=== PATIENT | female | born 1955 | race Caucasian/White ===

== ENCOUNTER 2020-05-31 18:33 | Inpatient (IN) | payer OTHER ==
[~2020-05-31] VITALS: Ht 167.6 cm; Wt 97.5 kg
--- NOTE | ~2020-05-31 | CON ---
[facility] [address] [place] [address] CONSULTATION Name: SAMIPRITESH K Room: [address] IN M.R.#: [id number] Admission: 05/31/20 Attend Phys: Chris Dumont Discharge: Date of : 55 Report #: [id number] THIS REPORT FOR: //name// cc: Jose Da Silva MD, Bruce D. MD ~ THIS REPORT FOR: //name// CC: Jose Mccracken DATE OF SERVICE: 06/01/2020 REASON FOR CONSULTATION: Melanotic stool and severe anemia. HISTORY OF PRESENT ILLNESS: This is a 64-year-old paraplegic female who has been paraplegic all her life. The patient presented with shortness of air, weakness and syncope. During her ER visit, she was found to have hemoglobin of 4.2 and has had reported that she has had on and off dark stools for the past 6-7 weeks. Her MCV is in the mid 60s. She denies any nausea, vomiting, dysphagia, GERD, or constipation. She has incontinence to stool. The patient also has never had any endoscopic evaluation in the past. PAST MEDICAL HISTORY: 1. 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 2. History of breast implant. 3. Hiatal hernia. 4. Colitis. 5. Insomnia. ALLERGIES: SIGNIFICANT TO LATEX AND BACTRIM. MEDICATIONS: Please refer to MAR. SOCIAL HISTORY: The patient is paraplegic, is and lives at home. She may have occasional alcoholic beverage, but denies tobacco use. FAMILY HISTORY: Noncontributory. PHYSICAL EXAMINATION: VITAL SIGNS: Reveals blood pressure of 101/50, respirations 19, pulse 73, and temperature 98.3. LUNGS: Clear. CARDIOVASCULAR: Regular. ABDOMEN: Soft, nontender, and nondistended. Bowel sounds are positive. NEUROLOGIC: The patient is alert and oriented x 3. [place] [address] CONSULTATION Name: GALLARDOPRITESH Room: [address] IN [facility].#: [id number] Admission: 05/31/20 Attend Phys: Chris Dumont Discharge: Date of : 55 Report #: [id number] LABORATORY DATA: Labs reveal sodium of 130, potassium 3.5, BUN is 15, creatinine is 0.7, AST 16, and ALT 19 with total bilirubin of 0.2. INR is 1.0. WBC is 4.2 with hemoglobin of 7.3, up from 4.2 after 2 units of packed RBC. Platelet is 270, MCV is 64, and RDW is 20.6. IMAGING: CT of abdomen and pelvis was obtained. There was no evidence of bowel obstruction, ascites or inflammatory mass. ASSESSMENT AND PLAN: The patient with symptomatic anemia, who has received 2 units of packed RBC and her hemoglobin is above 7. Anemia, most probably is chronic or acute over chronic. We will consider upper and lower endoscopy to evaluate her anemia. Also, I will order iron study, B12 and folic acid levels. We will make further recommendation after her endoscopy is complete. By: [id number] 24Latha Farias MD /nt
[~2020-05-31 18:33] MED LIST: AMBIEN 10 MG TA10 MG PO; AUGMENTIN 875875 MG PO; CIPROFLOXACIN500 M1 PO; FLEXERIL PO; LYRICA 50 MG50 MG PO; LYRICA 75 MG CA75 MG PO; REGLAN 10 MG TA10 MG PO; UNICOMPLEX M TA1 TA1 PO
[2020-05-31 18:41] VITALS: BP 118/58
[2020-05-31] MEDS ORDERED: LYRICA300 MG PO (18:43)
[2020-05-31 19:14] LABS: MCHC 30.3 g/dL (28.0-37.0); RBC 2.15 mil/uL (4.20-5.00); WBC 4.2 thou/uL (4.0-11.0)
[2020-05-31 19:16] LABS: MCH 19.4 pg (26.0-34.0); MPV 8.9 fl. (7.2-11.1); NUCLEATED RBCS 0 /100WBC; PLATELET COUNT* 270 thou/uL (150-400); RDW-CV 20.6 % (10.5-14.5)
[2020-05-31 19:21] LABS: CALCIUM 8.3 mg/dL (8.5-10.1); CREATININE 0.7 mg/dL (0.6-1.3); HEMATOCRIT 13.7 % (37.0-47.0); HEMOGLOBIN 4.2 gm/dL (12.0-15.0); POTASSIUM 3.5 mmol/L (3.5-5.1)
[2020-05-31 19:27] LABS: ALBUMIN 3.1 g/dL (3.4-5.0); TOTAL BILIRUBIN 0.2 mg/dL (<0.1-1.0); TOTAL PROTEIN 6.3 g/dL (6.4-8.2)
[2020-05-31 19:45] LABS: PROTIME 10.2 Seconds (9.20-11.50)
[2020-05-31 19:57] LABS: ABSOLUTE MONOCYTES 0.2 thou/uL (0.0-1.2); PLATELET ESTIMATE ADEQUATE
[2020-05-31 19:58] LABS: ANISOCYTOSIS 2+; HYPOCHROMASIA 3+; MICROCYTES 2+; POIKILOCYTOSIS 1+
[2020-05-31 22:29] VITALS: BP 121/70
[2020-05-31 22:55] VITALS: BP 113/50
[2020-06-01] VITALS (7 sets, daily range): BP systolic 101–121; BP diastolic 50–73
[2020-06-01 00:21] LABS: HEMOGLOBIN 6.2 gm/dL (12.0-15.0)
[2020-06-01 06:21] LABS: HEMOGLOBIN 7.3 gm/dL (12.0-15.0)
--- NOTE | 2020-06-01 10:57 | EKG ---
[place] [address] ELECTROCARDIOGRAM REPORT Name: GALLARDOPRITESH Room: [address] ADM IN M.R.#: [id number] Admission: 05/31/20 Attend Phys: Jean Marie Mccracken Discharge: Date of : 55 Date of Service: 05/31/20 1843 Report #: [id number] THIS REPORT FOR: //name// [facility] ED Test Date: 2020-05-31 Test Time: 18:43:28 Pat Name: PRITESH GALLARDO Department: Room: [facility] Gender: F [employer] Professor: ANGIE : 1955 Requested By: Elba Oconnor Order Number: [id number] MD: Jose Dangelo Measurements Intervals [place] Rate: 80 P: 47 GA: 208 QRS: 29 QRSD: 84 T: 41 QT: 345 QTc: 398 Interpretive Statements Sinus rhythm artifact noted Compared to ECG 11/14/2016 03:07:56 no change Electronically Signed On 06-01-2020 10:57:16 CDT by Jose Dangelo [email or web address] <ELECTRONICALLY SIGNED> By: Jose Dangelo MD, [facility] 06/01/20 1057 1843 1843 Jose Dangelo MD, [facility] /EPI
[2020-06-02] VITALS (7 sets, daily range): BP systolic 102–132; BP diastolic 38–68
[2020-06-02 05:17] LABS: ABSOLUTE EOSINOPHILS 0.1 thou/uL (0.0-0.7); ABSOLUTE LYMPHOCYTES 1.4 thou/uL (0.8-5.3); ABSOLUTE NEUTROPHILS 2.3 thou/uL (1.6-8.1); BASOPHILS 0.9 %; EOSINOPHILS 1.5 %; NUCLEATED RBCS 0 /100WBC
[2020-06-02 05:19] LABS: ABSOLUTE MONOCYTES 0.3 thou/uL (0.0-1.2); HEMATOCRIT 21.8 % (37.0-47.0); LYMPHOCYTES 34.1 %; MCH 23.5 pg (26.0-34.0); MCHC 31.8 g/dL (28.0-37.0); MPV 9.5 fl. (7.2-11.1); PLATELET COUNT* 241 thou/uL (150-400); POLYS 55.5 %; RBC 2.95 mil/uL (4.20-5.00); RDW-CV 25.3 % (10.5-14.5); WBC 4.2 thou/uL (4.0-11.0)
[2020-06-02 05:25] LABS: CALCIUM 7.9 mg/dL (8.5-10.1); CREATININE 0.7 mg/dL (0.6-1.3); POTASSIUM 3.6 mmol/L (3.5-5.1)
[2020-06-02 05:27] LABS: MCV 73.8 fL (80.0-100.0)
[2020-06-02 05:29] LABS: HEMOGLOBIN 6.9 gm/dL (12.0-15.0)
[2020-06-02 05:50] LABS: ANISOCYTOSIS 2+; HYPOCHROMASIA 2+; MICROCYTES 1+; OVALOCYTES 1+; PLATELET ESTIMATE ADEQUATE; POIKILOCYTOSIS 1+; POLYCHROMASIA 1+; TEARDROPS 1+
[2020-06-02 13:09] LABS: HEMATOCRIT 25.7 % (37.0-47.0); HEMOGLOBIN 8.3 gm/dL (12.0-15.0)
[2020-06-03] VITALS (8 sets, daily range): BP systolic 102–124; BP diastolic 38–82
[2020-06-03 12:08] LABS: ABSOLUTE EOSINOPHILS 0.1 thou/uL (0.0-0.7); ABSOLUTE MONOCYTES 0.3 thou/uL (0.0-1.2); ABSOLUTE NEUTROPHILS 2.2 thou/uL (1.6-8.1); BASOPHILS 1.1 %; EOSINOPHILS 3.4 %; HEMATOCRIT 25.5 % (37.0-47.0); LYMPHOCYTES 27.2 %; MCH 24.3 pg (26.0-34.0); MCHC 31.2 g/dL (28.0-37.0); MCV 77.8 fL (80.0-100.0); MONOCYTES 7.2 %; MPV 9.8 fl. (7.2-11.1); NUCLEATED RBCS 0 /100WBC; PLATELET COUNT* 213 thou/uL (150-400); POLYS 61.1 %; RBC 3.28 mil/uL (4.20-5.00); RDW-CV 25.1 % (10.5-14.5); WBC 3.6 thou/uL (4.0-11.0)
[2020-06-03 12:22] LABS: CALCIUM 7.7 mg/dL (8.5-10.1); CREATININE 0.6 mg/dL (0.6-1.3); POTASSIUM 3.7 mmol/L (3.5-5.1)
[2020-06-03 12:39] LABS: HYPOCHROMASIA 2+; OVALOCYTES 1+
[2020-06-03 12:40] LABS: ANISOCYTOSIS 2+; POLYCHROMASIA 1+
[2020-06-03] MEDS ORDERED: FOLIC ACID1 MG PO (12:44)
[2020-06-03] MEDS ORDERED: FERROUS GLUCON324 M3 PO (12:44)
== END 2020-06-03 19:37 | disposition home or self-care (01) | DRG 378 ==
LOC: M.ERS 18:33 → M.TBA-ER 20:12 → M.2W 22:40
PROVIDERS: Emergency Medicine; Internal Medicine; Internal Medicine Gastroenterology; Physician Assistant; ADMIT Internal Medicine; ATTEND Internal Medicine
PROC: 30233N1 Transfusion of Nonautologous Red Blood Cells into Peripheral Vein, Percutaneous Approach (ICD-10-PCS; 2020-05-31)
PROC: 0DJ08ZZ Inspection of Upper Intestinal Tract, Via Natural or Artificial Opening Endoscopic (ICD-10-PCS; principal; 2020-06-02)
PROC: 0DJD8ZZ Inspection of Lower Intestinal Tract, Via Natural or Artificial Opening Endoscopic (ICD-10-PCS; 2020-06-03)
DX: K92.2 Gastrointestinal hemorrhage, unspecified (principal); E87.1 Hypo-osmolality and hyponatremia; G82.20 Paraplegia, unspecified; D64.9 Anemia, unspecified; Z88.2 Allergy status to sulfonamides; Z88.8 Allergy status to other drugs, medicaments and biological substances; Z91.040 Latex allergy status; Z79.899 Other long term (current) drug therapy